=== PATIENT | male | born 1950 | race Caucasian/White ===

== ENCOUNTER 2024-10-16 11:24 | Outpatient (CLI) | payer MEDICARE, OTHER ==
[2024-10-16 13:28] LABS: Estimated GFR - POC 63.0
== END 2024-10-16 11:25 | disposition home or self-care (01) ==
LOC: CT 11:24
PROVIDERS: ATTEND Internal Medicine Gastroenterology
DX: K52.9 Noninfective gastroenteritis and colitis, unspecified (principal); R63.4 Abnormal weight loss
CPT/HCPCS: 36415; 74177; 82565

== ENCOUNTER 2024-10-23 07:07 | Day surgery (SDC) | payer MEDICARE, OTHER ==
[2024-10-23 07:56] LABS: #Basophils 0.04 10x3/uL (0.0-0.2); #Eosinophils 0.46 10x3/uL (0.0-0.7); #Monocytes 0.63 10x3/uL (0.11-0.59); #Neutrophils 2.39 10x3/uL (1.40-6.50); %Basophils 0.8 % (0.0-1.0); %Eosinophils 9.0 % (0.0-10.0); %Lymphocytes 31.1 % (21.0-51.0); %Monocytes 12.3 % (0.0-10.0); %Neutrophils 46.6 % (42.0-75.0); Hematocrit 38.3 % (42.0-52.0); Hemoglobin 12.1 g/dL (14.0-18.0); Mean Corpuscular Hemoglobin 30.5 pg (27.0-31.0); Mean Corpuscular Volume 96.5 fL (78.0-98.0); Platelet Count 200 10x3/uL (130-400); Red Blood Cell (RBC) Count 3.97 mill/uL (4.70-6.10); White Blood Cell (WBC) Count 5.12 10x3/uL (4.8-10.8)
[2024-10-23 08:13] LABS: INR-International Normal Ratio 1.1; Prothrombin Time 14.0 sec (12.0-14.7)
[2024-10-23 08:14] LABS: PTT 30.6 sec (22.9-36.1)
[2024-10-23] MEDS ORDERED: EPINEPHrine 1 MG/10 ML Abboject SYRINGE ONE (08:26)
[2024-10-23] MEDS ORDERED: PHENYLEPHRINE-NS 100 MCG/ML 10 ML SYRINGE ONE (08:26)
[2024-10-23] MEDS ORDERED: Lidocaine 1% PF 5 ML VIAL ONE (08:37)
[2024-10-23] MEDS ORDERED: Sodium Bicarbonate 2.5 MEQ/5 ML SDV ONE (08:38)
[2024-10-23 08:49] VITALS: BP 140/77; TEMP 97.5
== END 2024-10-23 13:24 | disposition home or self-care (01) ==
LOC: ULT 07:07
PROVIDERS: ATTEND Internal Medicine Gastroenterology
PROC: 0FB23ZX Excision of Left Lobe Liver, Percutaneous Approach, Diagnostic (ICD-10-PCS; principal; 2024-10-23)
DX: E83.19 Other disorders of iron metabolism (principal); K75.9 Inflammatory liver disease, unspecified; K76.0 Fatty (change of) liver, not elsewhere classified
CPT/HCPCS: 36000; 36415; 47000; 76942; 85025; 85610; 85730; 88307; J0165; J0461; J2250; J3010